=== PATIENT | female | born 1985 | race Caucasian/White ===

== ENCOUNTER → 2017-03-20 | Outpatient (CLI) | payer OTHER ==
[~2017-03-20] MED LIST: CETI10TA84 PO; PRENTAB26 PO
[2017-03-20 18:14] LABS: MEAN CORPUSCULAR HGB CONC 34.6 g/dl (32-36)
[2017-03-20 18:21] LABS: HEMATOCRIT 37.9 % (37-47); HEMOGLOBIN 13.1 g/dL (12.0-16.0); MEAN CELL VOLUME 88.1 fL (80-100); MEAN CORPUSCULAR HEMOGLOBIN 30.5 pg (25-34); RED CELL DISTRIBUTION WIDTH CV 12.6 % (11.5-14.5); RED CELL DISTRIBUTION WIDTH SD 40.2 fL (36.4-46.3); WHITE BLOOD COUNT 8.11 K/uL (4.8-10.8)
[2017-03-20 18:40] LABS: ALBUMIN 4.1 gm/dl (3.4-5.0); ALT/SGPT 21 U/L (12-78); BLOOD UREA NITROGEN 10 mg/dl (7-18); CALCIUM 9.2 mg/dl (8.5-10.1); CARBON DIOXIDE 26 mmol/L (21-32); CHOLESTEROL 148 mg/dl (0-200); CREATININE 0.63 mg/dl (0.60-1.20); GLUCOSE 88 mg/dl (70-99); POTASSIUM 3.4 mmol/L (3.5-5.1); SODIUM 137 mmol/L (136-145)
[2017-03-20 18:49] LABS: ALKALINE PHOSPHATASE 44 U/L (45-117); AST/SGOT 12 U/L (15-37); LDL CHOLESTEROL CALCULATED 85 mg/dl; TOTAL PROTEIN 7.8 gm/dl (6.4-8.2)
[2017-03-20 18:55] LABS: BASO % 0.2 %; BASO ABS # 0.02 K/uL (0-0.2); EOS % 0.7 %; EOS ABS # 0.06 K/uL (0-0.5); LYMPH % 27.9 %; LYMPH ABS # 2.26 K/uL (1.2-3.4); MONO % 7.6 %; MONO ABS # 0.62 K/uL (0.11-0.59); NEUT % 63.6 %; NEUT ABS # 5.15 K/uL (1.4-6.5); PLATELET COUNT 110 K/uL (130-400)
[2017-03-24 04:23] LABS: ANA SCREEN TC 249X NEGATIVE (NEGATIVE); ANTI-SS-A <1.0 NEG AI (<1.0 NEG); ANTI-SS-B <1.0 NEG AI (<1.0 NEG); ANTICARDIOLIPID AB IGA <11 APL (< = 11); COMPLEMENT C3 TC 44859W 114 MG/DL (90-180); COMPLEMENT C4 TC 44982E 23 MG/DL (16-47); MICROSOMAL AB <1 IU/ML (<9)
== END | disposition home or self-care (01) ==
LOC: C.LAB 17:09
PROVIDERS: ATTEND Internal Medicine
DX: Z00.00 Encounter for general adult medical examination without abnormal findings (principal); D69.6 Thrombocytopenia, unspecified; Z13.220 Encounter for screening for lipoid disorders; Z13.1 Encounter for screening for diabetes mellitus; Z13.29 Encounter for screening for other suspected endocrine disorder

== ENCOUNTER → 2017-05-24 | Outpatient (CLI) | payer OTHER | END | disposition home or self-care (01) | LOC: C.PAPS 14:05 | PROVIDERS: ATTEND Obstetrics & Gynecology | DX: Z01.419 Encounter for gynecological examination (general) (routine) without abnormal findings (principal) ==

== ENCOUNTER → 2017-06-22 | Outpatient (CLI) | payer OTHER | END | disposition home or self-care (01) | LOC: C.PATHSPEC 11:54 | PROVIDERS: ATTEND Plastic Surgery | DX: M79.9 Soft tissue disorder, unspecified (principal) ==

== ENCOUNTER 2023-08-28 05:25 | Inpatient (IN) ==
--- NOTE | 2023-08-11 14:20 | Anesthesiology Consultation ---
Date of Service August 11, 2023 Assessment & Plan (1) Encounter for pre-operative examination: Chart Review Chart Review: entry level initiated Hx of thrombocytopenia (previous done under [place] (in [place]) per records due to low platelets); platelets 118 on 08/09/23- will leave to OB/anesthesiologist discretion DOS regarding rechecking platelets day of procedure -Infectious Disease screening: Per PAT nursing assessment on 08/11/23. No known infectious disease contacts in past 10 days or current infectious disease symptoms. No recent travel outside the country. History Surgery Operation Date: 08/28/23 07:30 Proposed Procedures p Section (Delivery of Baby Through Abdominal Incision) - Alla Ramos DO s With Bilateral Tubal Ligation - Alla Ramos DO Height/Weight Height: 5 ft 6 in Weight: 94.347 kg Allergies Allergy/AdvReac Type Severity Reaction Status Date / Time ibuprofen Allergy Mild Causes Verified 08/16/23 13:39 asthma sx NSAIDS (Non-Steroidal Allergy Mild Causes Verified 08/16/23 13:39 Anti-Inflamma asthma sx Medications Home Medications Medication Instructions Recorded Confirmed Last Taken dupilumab 300 mg/2 mL subcutaneous 300 mg (2 mL) subcut .COMPLEX #4 mL 10/27/22 08/16/23 Unknown syringe (Dupixent) cetirizine 10 mg tablet (Zyrtec) 5 mg PO DAILY 11/11/22 08/16/23 Unknown 21-iron fu-folic acid 1 tab PO DAILY 02/08/23 08/16/23 Unknown [ Complete] ferrous sulfate 325 mg (65 mg 325 mg PO DAILY 08/11/23 08/16/23 Unknown iron) tablet (Iron (ferrous sulfate)) Active Medications Generic Name Dose Route Start Last Admin Trade Name Freq PRN Reason Stop Dose Admin Cefazolin Sodium 3,000 mg in 72.5 mls @ 130 mls/hr 08/28/23 06:00 08/28/23 07:32 Ancef 3000mg IV 08/29/23 05:59 130 mls/hr PREOP KARTIK Administration Protocol NPO Date Last Intake of Fluids: 08/28/23 Time Last Intake of Fluids: 22:45 Date Last Intake of Solids: 08/27/23 Time Last Intake of Solids: 22:45 Past Medical History Medical History Hx of migraines History of Holter monitoring "a few years ago," for palpitations, "some abnormalities seen occasionally, told if they get worse or prolonged to go back to cardiology" Moderate persistent asthma has not needed rescue inhaler since starting dupixent in 2020 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 Has seen genetic counselor and has estimated risk of 1% of a term affected by the translocation. Patient declined amniocentesis with current Chronic pansinusitis No upper respiratory issues per 08/11/23 nursing interview History of chicken pox as a child Anemia Hgb 11.1/Hct 33.6 on 07/12/23 Primary thrombocytopenia History Plts 118 on 08/09/23 Exercise / Class Metabolic Activity II 4-5 Yardwork/Stairs/Walk up hill Past Family History Family History Father Lupus erythematosus Hypertension Brother Sarcoidosis Mother Hypertension Grandmother (Paternal) Breast cancer Grandmother (Maternal) Environmental allergies Hypertension Grandfather (Paternal) Myocardial infarction Prostate cancer Denies family history of Ovarian cancer Clotting disorder Colorectal cancer Past Surgical History Surgical History History of surgery cyst removal shoulder History of tooth extraction History of section November 2014- done under [facility] due to low platelets Past Anesthesia History No Hx of Anesthesia Complications and No Family Hx of Anesthesia Complications History of PONV No Hx of PONV and No Hx of Motion Sickness Social History Smoking Status: Never smoker Do You Dip or Chew Tobacco: No Hx Alcohol Use: No Hx Substance Use: No substance use type: does not use Physical Exam Vital Signs Last Vital Signs Temp 37.0 C 08/28/23 06:30 Pulse 95 H 08/28/23 06:30 Resp 18 08/28/23 06:30 BP 136/88 08/28/23 06:30 Lab Results Anesthesia Preop Results Results Anesthesia Widget: 2 WBC 13.72 K/ul (4.8-10.8) H 08/28/23 Hgb 12.3 g/dl (12.0-16.0) 08/28/23 Hct 35.7 % (37.0-47.0) L 08/28/23 Plt 105 K/uL (130-400) L 08/28/23 Na 135 mmol/L (136-145) L 07/12/23 K 4.1 mmol/L (3.5-5.1) 07/12/23 Cl 105 mmol/L (98-107) 07/12/23 CO2 24 mmol/L (21-32) 07/12/23 BUN 10 mg/dl (6-23) 07/12/23 Creat 0.48 mg/dl (0.6-1.2) L 07/12/23 Glucose Level 95 mg/dl (70-99(Fasting)) 07/12/23 Blood Type A Positive 08/28/23 Antibody Screen NEGATIVE 08/28/23 Testing Laboratory Results 08/28/23 05:42 Blood Type A Positive 08/28/23 05:42 Antibody Screen NEGATIVE 08/28/23 05:42 Echocardiogram Date: 05/14/21 EF: 60-65% LV Function: normal RWMA: + none Other Findings: no LVH or no diastolic dysfunction Valvular Disease: + no significant valvular disease Normal estimated RVSP Other Testing Heart monitor 05/07/21-06/05/21= Sinus rhythm with average HR 76 bpm. Nonsustained atrial tachycardia. 1 episode of nonsustained AIVR. PACs and PVCs. Symptoms occurred during atrial tachycardia, AIVR, PACs, PVCs.
[2023-08-28] MEDS: LACTATED RINGER'S 1,000 ML IV SCH (06:00)
--- NOTE | 2023-08-28 06:24 | History & Physical Report ---
Date of Service August 28, 2023 Assessment & Plan Admission and Anticipated Discharge Date Admission Date: August 28, 2023 History of Present Illness Chief Complaint: contractions Primary Care Provider: Sulma Moore MD Patient is a 37yowf with iup at 39 weeks who [facility] for contractions. no lof/vb. +fm. Allergies Allergy/AdvReac Type Severity Reaction Status Date / Time ibuprofen Allergy Mild Causes Verified 08/16/23 13:39 asthma sx NSAIDS (Non-Steroidal Allergy Mild Causes Verified 08/16/23 13:39 Anti-Inflamma asthma sx Home Medications Medication Instructions Recorded Confirmed Type dupilumab 300 mg/2 mL subcutaneous 300 mg (2 mL) subcut .COMPLEX #4 mL 10/27/22 08/16/23 Rx syringe (Dupixent) cetirizine 10 mg tablet (Zyrtec) 5 mg PO DAILY 11/11/22 08/16/23 History 21-iron fu-folic acid 1 tab PO DAILY 02/08/23 08/16/23 History [ Complete] ferrous sulfate 325 mg (65 mg 325 mg PO DAILY 08/11/23 08/16/23 History iron) tablet (Iron (ferrous sulfate)) Patient History Medical History Anemia Hgb 11.1/Hct 33.6 on 07/12/23 Chronic pansinusitis No upper respiratory issues per 08/11/23 nursing interview 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 Has seen genetic counselor and has estimated risk of 1% of a term affected by the translocation. Patient declined amniocentesis with current History of chicken pox as a child History of Holter monitoring "a few years ago," for palpitations, "some abnormalities seen occasionally, told if they get worse or prolonged to go back to cardiology" Hx of migraines Moderate persistent asthma has not needed rescue inhaler since starting dupixent in 2020 Primary thrombocytopenia History Plts 118 on 08/09/23 Surgical History History of section November 2014- done [facility] due to low platelets History of surgery cyst removal shoulder History of tooth extraction Family History Father Lupus erythematosus Hypertension Brother Sarcoidosis Mother Hypertension Grandmother (Paternal) Breast cancer Grandmother (Maternal) Environmental allergies Hypertension Grandfather (Paternal) Myocardial infarction Prostate cancer Denies family history of Ovarian cancer Clotting disorder Colorectal cancer Social History (Updated 02/08/23 @ 15:16 by Ann Marie Kohli) Smoking Status: Never smoker Second Hand Exposure: No; Do You Dip or Chew Tobacco: No; Tobacco Cessation Education Requested by Patient: No Hx Alcohol Use: No Hx Substance Use: No Preferred Language: Burmese Communication Ability: Effective Visual Impairment: No Limitations Hearing Ability: Normal Freedom Of Information Officer Required: No Beliefs That Will Affect Care: None marital status: marital status details: Kevan Tyson (39) [phone] Current Living Situation: Spouse and Family Current Living Situation Comment: and son current occupational status: employed current occupation: [employer] How many Children do You have: 1 Other Information That Helps Us Care for You: No Feels Safe at Home: Yes Safety Concerns: Feels Safe At This Time Childhood Exposure to Second-Hand Smoke: Yes during the past year weight has: decreased > 10 lbs Dental Care, Regularly: No Physical Activity Frequency: Does not Exercise Seatbelt Use: always Sunscreen Use: Yes Assistive Devices: None Results & Data Vital Signs (Past 12 Hours) Vital Signs Temp Pulse Resp BP 08/28/23 05:46 37.0 C 18 08/28/23 05:42 93 H 150/91 H Coding
[2023-08-28 06:37] LABS: Hematocrit (blood only) 35.7 % (37.0-47.0); Hemoglobin 12.3 g/dl (12.0-16.0); Mean Corpuscular Hemoglobin 31.2 pg (25.0-34.0); Mean Corpuscular Hgb Conc 34.5 g/dL (32.0-36.0); Mean Corpuscular Volume 90.6 fL (80.0-100.0); Platelet Count 105 K/uL (130-400); Platelet Estimate Decreased (Normal); RDW Coefficient of Variation 12.9 % (11.5-14.5); RDW Standard Deviation 42.7 fL (36.4-46.3); Red Blood Count 3.94 M/uL (4.20-5.40); White Blood Count 13.72 K/ul (4.8-10.8)
[2023-08-28] MEDS ORDERED: OXYTOCIN 10 UNITS/ML VIAL ONE (06:57)
[2023-08-28] MEDS ORDERED: fentaNYL citrate PF 100 MCG/2 ML VIAL ONE (06:57)
[2023-08-28] MEDS ORDERED: MoRPHine SULFATE PF 1 MG/ML 10 ML AMP/VIAL ONE (06:57)
[2023-08-28] MEDS ORDERED: DEXAMETHASONE SOD INJ 4 MG/ML VIAL ONE (06:57)
[2023-08-28] MEDS ORDERED: ePHEDrine sulfate 50 MG/5 ML SYR ONE (06:57)
[2023-08-28] MEDS ORDERED: ONDANSETRON INJ 2 MG/ML 2 ML VIAL ONE (06:57)
[2023-08-28] MEDS ORDERED: PHENYLEPHRINE 100MCG/ML 10ML SYR IV ONE (06:57)
--- NOTE | 2023-08-28 07:14 | History & Physical Report ---
Date of Service August 28, 2023 Assessment & Plan (1) : Plan: Plan for repeat section, tubal sterilization. Reviewed consent. Platelets 102 today. Admission and Anticipated Discharge Date Admission Date: August 28, 2023 History of Present Illness Chief Complaint: repeat Primary Care Provider: Sulma Moore MD 37yo @ 39 0/7, here for repeat cesearan section and tubal sterilization. AMA Weekly NST's @ 36 weeks Previous - Repeat at 39 weeks C/S WITH TUBAL SCHEDULED FOR 08/[address] LAZARO Carrier Robertsonian Translocation s/p Genetics consult Hx Low Platelets - 102 at NOB, 117 at 28w - Check at 28 and 36 weeks Allergies Allergy/AdvReac Type Severity Reaction Status Date / Time ibuprofen Allergy Mild Causes Verified 08/16/23 13:39 asthma sx NSAIDS (Non-Steroidal Allergy Mild Causes Verified 08/16/23 13:39 Anti-Inflamma asthma sx Home Medications Medication Instructions Recorded Confirmed Type dupilumab 300 mg/2 mL subcutaneous 300 mg (2 mL) subcut .COMPLEX #4 mL 10/27/22 08/16/23 Rx syringe (DupixVormetric) cetirizine 10 mg tablet (Zyrtec) 5 mg PO DAILY 11/11/22 08/16/23 History 21-iron fu-folic acid 1 tab PO DAILY 02/08/23 08/16/23 History [ Complete] ferrous sulfate 325 mg (65 mg 325 mg PO DAILY 08/11/23 08/16/23 History iron) tablet (Iron (ferrous sulfate)) Patient History Medical History Anemia Hgb 11.1/Hct 33.6 on 07/12/23 Chronic pansinusitis No upper respiratory issues per 08/11/23 nursing interview 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 Has seen genetic counselor and has estimated risk of 1% of a term affected by the translocation. Patient declined amniocentesis with current History of chicken pox as a child History of Holter monitoring "a few years ago," for palpitations, "some abnormalities seen occasionally, told if they get worse or prolonged to go back to cardiology" Hx of migraines Moderate persistent asthma has not needed rescue inhaler since starting dupixent in 2020 Primary thrombocytopenia History Plts 118 on 08/09/23 Surgical History History of section November 2014- done [facility] due to low platelets History of surgery cyst removal shoulder History of tooth extraction Family History Father Lupus erythematosus Hypertension Brother Sarcoidosis Mother Hypertension Grandmother (Paternal) Breast cancer Grandmother (Maternal) Environmental allergies Hypertension Grandfather (Paternal) Myocardial infarction Prostate cancer Denies family history of Ovarian cancer Clotting disorder Colorectal cancer Social History (Updated 02/08/23 @ 15:16 by Ann Marie Kohli) Smoking Status: Never smoker Second Hand Exposure: No; Do You Dip or Chew Tobacco: No; Tobacco Cessation Education Requested by Patient: No Hx Alcohol Use: No Hx Substance Use: No Preferred Language: Yi Communication Ability: Effective Visual Impairment: No Limitations Hearing Ability: Normal Fleet Administrative Assistant Required: No Beliefs That Will Affect Care: None marital status: marital status details: Kevan Tyson (39) [phone] Current Living Situation: Spouse and Family Current Living Situation Comment: and son current occupational status: employed current occupation: [email or web address] How many Children do You have: 1 Other Information That Helps Us Care for You: No Feels Safe at Home: Yes Safety Concerns: Feels Safe At This Time Childhood Exposure to Second-Hand Smoke: Yes during the past year weight has: decreased > 10 lbs Dental Care, Regularly: No Physical Activity Frequency: Does not Exercise Seatbelt Use: always Sunscreen Use: Yes Assistive Devices: None Review of Systems All systems reviewed & are unremarkable except as noted in HPI & below Physical Exam Physical Exam: FHT Cat 1 [place] none Constitutional: WD/WN, vitals as above Respiratory: normal respiratory effort, lungs clear to auscultation no respiratory distress Cardiovascular: Rate/Rhythm: regular rate and regular rhythm Gastrointestinal (Abdomen): Inspection/Auscultation: abdomen normal to inspection Percussion/Palpation: abdomen soft; abdomen nontender Gravid. No s/s chorio or abruption. Skin: no rashes, warm and dry Psychiatric: A+Ox3, euthymic affect Results & Data Vital Signs (Past 12 Hours) Vital Signs Temp Pulse Resp BP 08/28/23 06:30 37.0 C 95 H 18 136/88 08/28/23 05:46 37.0 C 18 08/28/23 05:42 93 H 150/91 H Coding Level of Care Code None Diagnoses Z34.90
[2023-08-28] MEDS: CITRIC ACID/SODIUM CITRATE 15 ML UDC PO SCH (07:32)
[2023-08-28] MEDS: ceFAZolin 3000MG 3,000 MG/72.5 ML BAG IV SCH (07:32)
[2023-08-28] MEDS ORDERED: MoRPHine SULFATE 2 MG/ML CARP IV PRN (08:18)
[2023-08-28] MEDS ORDERED: ePHEDrine sulfate 50 MG/ML AMP IV PRN (08:18)
[2023-08-28] MEDS ORDERED: LACTATED RINGER'S 500 ML IV PRN (08:18)
[2023-08-28] MEDS ORDERED: NALOXONE HCL 0.4 MG/1 ML VIAL/CARP IV PRN (08:18)
[2023-08-28] MEDS ORDERED: HYDROmorphone INJ 0.5 MG/0.5 ML SYR IV PRN (08:18)
[2023-08-28] MEDS ORDERED: diphenhydrAMINE 50 MG/ML VIAL IV PRN (08:18)
[2023-08-28] MEDS ORDERED: NALBUPHINE HCL 5 MG in SYRINGE 0 ML IV PRN (08:18)
[2023-08-28] MEDS ORDERED: MoRPHine SULFATE PF 1 MG/ML 10 ML AMP/VIAL INT SPINAL ONE (08:18)
[2023-08-28] MEDS ORDERED: NALOXONE HCL 0.08 MG in SYRINGE 1.8 ML IV PRN (08:18)
[2023-08-28] MEDS ORDERED: NALOXONE HCL 1 MG in SODIUM CHLORIDE 0.9% 1,000 ML IV PRN (08:18)
[2023-08-28] MEDS ORDERED: NO NARCOTICS OR SEDATIVES SCH (08:30)
[2023-08-28] MEDS ORDERED: DC INTRASPINAL MORPHINE SCH (08:30)
[2023-08-28] MEDS ORDERED: SODIUM CHLORIDE 0.9% 1,000 ML IV SCH (08:30)
[2023-08-28] MEDS ORDERED: MAGNESIUM HYDROXIDE SUSP 30 ML UDC PO PRN (08:36)
[2023-08-28] MEDS ORDERED: BENZOCAINE 20% SPRY 85 APPLN/85 GM CAN EXT PRN (08:36)
[2023-08-28] MEDS ORDERED: SENNA 8.6 MG TAB PO PRN (08:36)
[2023-08-28] MEDS ORDERED: HYDROCORTISONE ACETATE 25 MG SUPP PR PRN (08:36)
[2023-08-28 08:42] LABS: Base Excess Cord Arterial Bld -1.7 mEq/L (-9-1.8); CO2 Cord Arterial Blood 50 mmHg (39.1-73.5); HCO3 Cord Arterial Blood 25 mmol/L (19.7-28.5); Oxygen Sat Cord Arterial Blood < 60.0 % (<60); PO2 Cord Arterial Blood < 20 mmHg (4.1-31.7); pH Cord Arterial Blood 7.31 (7.1-7.38)
[2023-08-28 08:43] LABS: Base Excess Cord Venous Blood -3.3 mEq/L (-7.7-1.9); Cord Venous Blood HCO3 22 mmol/L (18.4-26.8); Cord Venous Blood PCO2 40 mmHg (30.4-57.2); Cord Venous Blood PO2 35 mmHg (14.1-43.3); Cord Venous Blood pH 7.35 (7.20-7.44); O2 Saturation Cord Venous Bld 72.6 % (<68)
[2023-08-28] MEDS ORDERED: LACTATED RINGER'S 1,000 ML IV SCH (08:45)
--- NOTE | 2023-08-28 09:01 | Anesthesiology Progress Note ---
Date of Service August 28, 2023 Anesthesia Post Procedure Vital Signs Vital Signs: Temp Pulse Resp BP Pulse Ox 08/28/23 09:00 71 100 08/28/23 08:59 77 88 L 08/28/23 08:55 73 99 08/28/23 08:51 71 114/61 08/28/23 08:50 70 98 08/28/23 07:34 20 08/28/23 07:34 20 08/28/23 06:30 37.0 C 95 H 18 136/88 08/28/23 05:46 37.0 C 18 08/28/23 05:42 93 H 150/91 H Transfer of Care Handoff Completed per policy Notes Mental Status: alert / awake / arousable and participated in evaluation Patient Amnestic to Procedure: No Nausea / Vomiting: adequately controlled Pain: adequately controlled Airway Patency, RR, SpO2: stable & adequate BP & HR: stable & adequate Hydration State: stable & adequate Neuraxial Anesthesia: was administered and sensory block is resolving Anesthetic Complications: no major complications apparent and Pt Satisfied with anesthetic care
[2023-08-28] MEDS: DIPHTHER/TETAN/PERTUS Vaccine (Tdap, Adol/Adult) 0.5mL IM ONE (09:19)
[2023-08-28] MEDS: ARISTA ABSORBABLE HEMOSTAT 3GM TOP ONE (09:20)
--- NOTE | 2023-08-28 09:29 | Operative Report ---
PG Post Operative Report Pre & Post Diagnosis Operation Date: 08/28/23 07:30 Pre-Op Diagnosis: History of section x1. Desires repeat section. Desires permanent sterilization. Post-Op Diagnosis: History of section x1. Desires repeat section. Desires permanent sterilization. Delivery of live female child at 0801. I identified the patient and participated in the time-out.: Yes Procedure Operation Date: 08/28/23 07:30 Actual Procedures p Repeat Low Transverse Section (Delivery of Baby Through Abdominal Incision), delivery of live female child at 0801 - Alla Ramos DO s With Bilateral Tubal Ligation(Bilateral) - Alla Ramos DO Surgeon Alla Ramos DO Hospice Massage Therapist Dary Shelton MD Estimated Blood Loss 743 (QBL) Findings Consistent with Post-Op Diagnosis Viable female Apgars 8/9. Weight pending, please see nursery records. Specimens cord blood, cord gas, placenta Drains nazario clear yellow Anesthesia Type Spinal Complications none Disposition Accompanied Patient To Recovery: No Indications 37yo @ 39 0/7, history of section x 1, desire for tubal sterilization, AMA, thrombocyotopenia, Robertsonian translocation Description of Procedure The patient was seen in her labor and delivery room, risks benefits and alternatives to surgery were reviewed. Informed consent obtained. Questions were answered. She was taken to the operating room, spinal anesthesia was administered. She was then prepared and draped in the usual sterile fashion in the supine position with a leftward tilt. Timeout was confirmed. A Pfannenstiel skin incision was made with a scalpel, and carried through to the underlying layer of fascia. Fascia was nicked at midline, and this incision was extended bilaterally. The superior aspect of the fascial incision was grasped with Adenike clamps x2, elevated off the underlying rectus abdominis muscles, and dissected sharply and bluntly. In similar fashion, the inferior aspect of the fascial incision was dissected. The rectus abdominis muscles were , and the peritoneum was entered bluntly digitally. This was extended bilaterally. The bladder flap was taken down carefully using Metzenbaum scissors. Using a new scalpel, a low transverse uterine incision was created. Clear amniotic fluid noted. The infant was delivered from a cephalic presentation. The head delivered, followed by shoulders and body. Spontaneous cry on the field. The cord was doubly clamped and cut, and the was handed off to the waiting wreath machine operator. A segment was retained for cord gases. Cord blood was obtained. The placenta was delivered spontaneously intact. The uterus was exteriorized, and cleared of all clots and debris. The hysterotomy incision was reapproximated using 0 Vicryl in a running locked stitch. A second layer of the same suture was used to imbricate the incision. Posterior uterus was evaluated and normal. Tubal performed: right tube grasped with Dee Dee clamp, identified to fimbria, and transected from mesosalpinx and then transected from uterus with Ligasure handheld device. In a similar fashion, left tube was removed. These were passed off for pathology. The uterus was returned to the abdomen, and gutters were cleared of clots and debris. Excellent hemostasis was observed. The fascial incision was reapproximated using 0 Vicryl in a running stitch. The subcutaneous tissue was irrigated, and reapproximated using 2-0 plain gut in a running stitch. The skin was reapproximated using 4-0 Vicryl in a running subcuticular stitch. Steri-Strips and a bandage were applied. The patient tolerated the procedure well, and will be taken to the recovery area in stable and good condition. I attest to the content of the Intraoperative Record and any orders documented therein. Any exceptions are noted below. OB Procedure Charges [id number] Add on Tubal for C/S
[2023-08-28] MEDS: OXYTOCIN 20 UNITS/LR 1,002 ML IV SCH (09:45)
[2023-08-28] MEDS: ONDANSETRON INJ 2 MG/ML 2 ML VIAL IV PRN (10:17)
[2023-08-28] MEDS: PROMETHAZINE HCL 6.25 MG in SODIUM CHLORIDE 0.9% 50 ML IV PRN (12:19)
[2023-08-28] MEDS: ACETAMINOPHEN 1,000 MG/100 ML VIAL IV PRN (14:08)
[2023-08-28] MEDS: SIMETHICONE 80 MG CHEW PO SCH (14:08)
[2023-08-28] MEDS: DOCUSATE SODIUM 100 MG CAP PO SCH (20:50)
[2023-08-29] MEDS ORDERED: diphenhydrAMINE 50 MG/ML VIAL IV PRN (02:18)
[2023-08-29] MEDS ORDERED: PROMETHAZINE HCL 25 MG in SODIUM CHLORIDE 0.9% 50 ML IV PRN (02:18)
[2023-08-29] MEDS ORDERED: diphenhydrAMINE Capsule 25 MG CAP PO PRN (02:18)
[2023-08-29] MEDS ORDERED: MEPERIDINE HCL 50 MG/ML CARP IV PRN (02:18)
[2023-08-29] MEDS ORDERED: ONDANSETRON INJ 2 MG/ML 2 ML VIAL IV PRN (02:18)
[2023-08-29] MEDS: oxyCODONE/ACETAMINOPHEN 5mg/325mg TAB PO PRN (05:18)
[2023-08-29 06:47] LABS: Basophils # (auto) 0.03 K/uL (0.00-0.20); Basophils % (auto) 0.2 %; Eosinophils # (auto) 0.04 K/uL (0.00-0.50); Eosinophils % (auto) 0.2 %; Hematocrit (blood only) 32.8 % (37.0-47.0); Hemoglobin 11.3 g/dl (12.0-16.0); Immature Granulocytes # (auto) 0.13 K/uL (0.01-0.20); Immature Granulocytes % (auto) 0.8 %; Lymphocytes # (auto) 1.35 K/uL (1.20-3.40); Lymphocytes % (auto) 8.4 %; Mean Corpuscular Hemoglobin 31.5 pg (25.0-34.0); Mean Corpuscular Hgb Conc 34.5 g/dL (32.0-36.0); Mean Corpuscular Volume 91.4 fL (80.0-100.0); Monocytes # (auto) 1.06 K/uL (0.11-0.59); Monocytes % (auto) 6.6 %; Neutrophils # (auto) 13.45 K/uL (1.40-6.50); Neutrophils % (auto) 83.8 %; Platelet Count 95 K/uL (130-400); Platelet Estimate Decreased (Normal); Polychromasia 1+; RDW Coefficient of Variation 13.1 % (11.5-14.5); RDW Standard Deviation 42.8 fL (36.4-46.3); Red Blood Count 3.59 M/uL (4.20-5.40); White Blood Count 16.06 K/ul (4.8-10.8)
--- NOTE | 2023-08-29 07:22 | Obstetrical Progress Note ---
Date of Service August 29, 2023 Assessment & Plan (1) care following delivery: Plan stable, cont po pain meds and cont diet. ambulate and routine care. hgb 11.3. enc her that day will get better. Day #:: 1 Subjective Ambulation: ambulating normally Voiding: no voiding problems Diet Tolerance:: regular diet Lochia:: Small Feeding Type:: breast feeding did have increased pain with getting up to void first time. voided well, took a little time and now feeling better after percocet. felt like a uterine cramp. Constitutional: + as per Subjective / HPI Physical Exam Constitutional WD/WN, vitals as above Respiratory normal respiratory effort, lungs clear to auscultation Cardiovascular Rate/Rhythm: regular rate and regular rhythm Gastrointestinal (Abdomen) Inspection/Auscultation: abdomen normal to inspection and + abdominal surgical incision (c/d/i with steris) Percussion/Palpation: abdomen soft Fundus firm at umbilicus. moderate appropriate tenderness. Musculoskeletal nt calves tr edema Neurologic grossly normal Psychiatric A+Ox3, euthymic affect Results & Data Vital Signs (Past 12 Hours) Vital Signs Temp Pulse Resp BP Pulse Ox O2 Del Method 08/29/23 04:00 97.9 F 80 16 121/77 Room Air 08/29/23 03:03 16 96 08/29/23 02:00 14 98 08/29/23 01:00 16 97 08/29/23 00:10 14 98 08/29/23 00:10 98.1 F 80 14 126/78 98 Room Air 08/28/23 23:19 16 98 08/28/23 22:30 14 96 08/28/23 21:28 14 97 08/28/23 20:15 16 99 08/28/23 20:15 98.2 F 87 16 122/79 99 Room Air
[2023-08-29] MEDS: traMADol HCL 50 MG TABLET PO PRN (08:53)
[2023-08-29] MEDS: PRENATAL VITAMIN 1 TAB PO SCH (08:53)
[2023-08-29] MEDS: FERROUS SULFATE 325 MG TAB PO SCH (08:55)
[2023-08-29] MEDS: CETIRIZINE HCL 10 MG TABLET PO SCH (12:51)
[2023-08-29] MEDS: bisacodyL 5 MG TABEC PO SCH (20:29)
[2023-08-30 06:30] LABS: Hematocrit (blood only) 29.4 % (37.0-47.0); Hemoglobin 9.8 g/dl (12.0-16.0)
[2023-08-30] MEDS ORDERED: bisacodyL 10 MG SUPP PR PRN (08:36)
--- NOTE | 2023-08-30 08:39 | Obstetrical Progress Note ---
Date of Service August 30, 2023 Subjective Ambulation: ambulating normally Voiding: no voiding problems Passing Gas:: Yes Diet Tolerance:: regular diet Lochia:: Small Feeding Type:: breast feeding Physical Exam Constitutional WD/WN, vitals as above Eyes PERRL, conjunctivae normal, anicteric sclerae Neck normal visual inspection Respiratory normal respiratory effort and able to speak in complete sentences; no respiratory distress and no labored breathing Cardiovascular Rate/Rhythm: regular rate and regular rhythm Extremities: no edema Chest (Breasts) Chest: normal inspection of chest Gastrointestinal (Abdomen) Inspection/Auscultation: abdomen normal to inspection Soft, postgravid C/D/I Psychiatric A+Ox3, euthymic affect Genitourinary OB Exam Abdomen: + fundal height Fundus: + firm and + relation to umbilicus (fundus just below umbilicus); not tender Results & Data Vital Signs (Past 12 Hours) Vital Signs Temp Pulse Resp BP Pulse Ox O2 Del Method 08/29/23 23:40 98.2 F 101 H 18 127/84 98 Room Air
== END 2023-08-30 11:48 | disposition home or self-care (01) | DRG 785 ==
LOC: 4S1 05:25 → EDSTATUS 07:30 → 4E2 11:30
PROC: M.PPTLD (2023-08-28 07:30)